=== PATIENT | female | born 1985 | race Caucasian/White ===

== ENCOUNTER 2022-06-27 13:00 | Outpatient (RCR) | payer OTHER, SELFPAY | END 2022-07-18 15:18 | disposition home or self-care (01) | LOC: HO.PT 13:00 | PROVIDERS: PCP Internal Medicine; Visit Provider Obstetrics & Gynecology | DX: M62.08 Separation of muscle (nontraumatic), other site (principal) | CPT/HCPCS: 97110; 97112; 97140; 97161 ==